=== PATIENT | female | born 1965 | race Caucasian/White ===

== ENCOUNTER 2023-02-12 11:53 | Emergency (ER) | payer BC, OTHER | END 2023-02-12 13:48 | disposition home or self-care (01) | LOC: ERS 11:53 | DX: S50.11XA Contusion of right forearm, initial encounter (principal); W18.43XA Slipping, tripping and stumbling without falling due to stepping from one level to another, initial encounter; W22.8XXA Striking against or struck by other objects, initial encounter ==